=== PATIENT | male | born 1975 | race African-American/Black ===

== ENCOUNTER 2017-01-14 16:40 | Emergency (ER) | payer BC ==
--- NOTE | 2017-01-14 16:49 | PDOC ---
History of Present Illness - General History Source: Patient Exam Limitations: No Limitations - History of Present Illness Initial Comments: 01/14/17 17:31 The patient is a 41 year old male, with a significant past medical history of asthma, who presents to the emergency department with chest tightness and shortness of breath for the past 2 days. The patient reports that his symptoms started yesterday morning and have progressed since then so he decided to visit an ED for evaluation. The patient reports that he has not had an asthma exacerbation in many years and thus, no longer has an inhaler for his asthma. The patient denies fever, chills, cough, nausea, vomiting or any recent illnesses. The patient denies any sick contacts at home. Allergies: Shellfish derived. Past Surgical History: None reported. Social History: Non smoker. Denies alcohol or drug use. <Leeanne Ochoa - Last Filed: 01/14/17 17:31> - General History Source: Patient, Old Records Exam Limitations: No Limitations <Brigitte Philippe - Last Filed: 01/14/17 18:44> - General Chief Complaint: Cold Symptoms Stated Complaint: COUGH Time Seen by Provider: 01/14/17 16:49 Past History <Leeanne Ochoa - Last Filed: 01/14/17 17:31> <Brigitte Philippe - Last Filed: 01/14/17 18:44> - Past Medical History Allergies/Adverse Reactions: Allergies Allergy/AdvReac Type Severity Reaction Status Date / Time shellfish derived Allergy Severe Swelling Verified 01/14/17 16:41 Home Medications: Ambulatory Orders Albuterol Sulfate Inhaler - [Ventolin HFA Inhaler -] 2 inh PO Q4H #1 inh Prednisone [Deltasone -] 40 mg PO UTDICT #8 tablet 01/14/17 Review of Systems - Review of Systems Able to Perform ROS?: Yes Comments:: 01/14/17 17:05 GENERAL/CONSTITUTIONAL: No fever or chills. No weakness. HEAD, EYES, EARS, NOSE AND THROAT: No change in vision. No ear pain or discharge. No sore throat. CARDIOVASCULAR: +Chest tightness, shortness of breath. RESPIRATORY: No cough, wheezing, or hemoptysis. GASTROINTESTINAL: No nausea, vomiting, diarrhea or constipation. GENITOURINARY: No dysuria, frequency, or change in urination. MUSCULOSKELETAL: No joint or muscle swelling or pain. No neck or back pain. SKIN: No rash. NEUROLOGIC: No headache, vertigo, loss of consciousness, or change in strength/ sensation. ENDOCRINE: No increased thirst. No abnormal weight change. HEMATOLOGIC/LYMPHATIC: No anemia, easy bleeding, or history of blood clots. ALLERGIC/IMMUNOLOGIC: No hives or skin allergy. <Leeanne Ochoa - Last Filed: 01/14/17 17:31> *Physical Exam - Physical Exam Comments: 01/14/17 17:22 GENERAL: Awake, alert, and fully oriented, in no acute distress. HEAD: No signs of trauma. EYES: PERRLA, EOMI, sclera anicteric, conjunctiva clear. ENT: Auricles normal inspection, hearing grossly normal, nares patent, oropharynx clear without exudates. Moist mucosa. NECK: Normal ROM, supple, no lymphadenopathy, JVD, or masses. LUNGS: Diffuse bilateral expiratory wheezes with rhonchorous breath sounds bilaterally. Good air movement. Breath sounds equal. No crackles. HEART: Regular rate and rhythm, normal S1 and S2, no murmurs, rubs or gallops. ABDOMEN: Soft, nontender, normoactive bowel sounds. No guarding, no rebound. No masses. EXTREMITIES: Normal range of motion, no edema. No clubbing or cyanosis. No cords , erythema, or tenderness. NEUROLOGICAL: Cranial nerves II through XII intact. Normal speech, normal gait. SKIN: Warm, dry, normal turgor, no rashes or lesions noted. <Leeanne Ochoa - Last Filed: 01/14/17 17:31> Medical Decision Making - Medical Decision Making 01/14/17 16:58 41-year-old male with history of asthma presents to the emergency Department with complaints of chest tightness and difficulty breathing for the past 2 days. He did not have an asthma pump therefore did not use it. Differential diagnosis includes but is not limited to: Acute asthmatic exacerbation, reactive airway disease, pneumonia, URI. Plan: 1. Chest x-ray 2. DuoNeb treatments 3. Observe and reevaluate 01/14/17 18:43 Addendum: The patient received 3 duoneb treatments and the wheezing is markedly improved. He is symptomatically improved as well. Will discharge home with Rx for albuterol MDI and prednisone. Follow-up with PCP within one week and RTED if Sx persist, worsen or new Sx arise. <Brigitte Philippe - Last Filed: 01/14/17 18:44> *DC/Admit/Observation/Transfer - Attestations Scribe Attestion: 01/14/17 16:52 Documentation prepared by Leeanne Ochoa, acting as medical device for Brigitte Philippe MD. <Leeanne Ochoa - Last Filed: 01/14/17 17:31> - Discharge Dispostion Admit: No - Attestations Physician Attestion: 01/14/17 16:59 I, Dr. Brigitte Philippe, attest that the scribes documentation that appears above has been prepared under my direction and personally reviewed by me in its entirety. I confirmed that the note above accurately reflects all work, treatment, procedures, and medical decision-making performed by me. <Brigitte Philippe - Last Filed: 01/14/17 18:44> Diagnosis at time of Disposition: Acute asthma exacerbation - Discharge Dispostion Disposition: HOME Condition at time of disposition: Stable - Prescriptions Prescriptions: Prednisone [Deltasone -] 40 mg PO UTDICT #8 tablet Albuterol Sulfate Inhaler - [Ventolin HFA Inhaler -] 2 inh PO Q4H #1 inh - Patient Instructions Printed Discharge Instructions: DI for Asthma -- Adult Additional Instructions: You have an asthma exacerbation. You are being prescribed an albuterol pump. Take 2 puffs every 4 hours as needed for difficulty breathing. You are also prescribed prednisone 40mg once daily for the next four days (you have been given one dose inthe ED). Please follow-up with your primary care physician within one week and return to the ED if your symptoms persist, worsen or new symptoms arise.
[2017-01-14 16:53] VITALS: BP 122/84; PULSE 76; TEMP 98.6; BMI 23.7
[2017-01-14] MEDS ORDERED: IPRATROPIUM BR 0.02% 0.5 MG/2.5 ML VIAL.NEB. NEB ONE ×2 (16:56→18:15)
[2017-01-14] MEDS ORDERED: ALBUTEROL SO4 2.5/IPRATROPIUM 0.5 INH SOL 3 ML VIAL.NEB. NEB ONE ×4 (16:58→18:17)
[2017-01-14] MEDS: ALBUTEROL SO4 0.083% IH SOL 2.5 MG/3 ML VIAL.NEB. NEB SCH ×2 (17:22→17:23)
[2017-01-14] MEDS ORDERED: predniSONE 20 MG TABLET (UD) PO ONE (18:15)
[2017-01-14] MEDS ORDERED: ALBUTEROL SO4 0.083% IH SOL 2.5 MG/3 ML VIAL.NEB. NEB ONE (18:15)
[2017-01-14] MEDS ORDERED: predniSONE 20 MG TABLET (UD) ONE (18:16)
== END 2017-01-14 19:08 | disposition home or self-care (01) ==
LOC: FER 16:40
PROC: 3E0F7GC Introduction of Other Therapeutic Substance into Respiratory Tract, Via Natural or Artificial Opening (ICD-10-PCS; principal; 2017-01-14)
DX: J45.901 Unspecified asthma with (acute) exacerbation (principal)
CPT/HCPCS: 71020-TC; 99282-25